=== PATIENT | female | born 1995 | race Caucasian/White ===

== ENCOUNTER → 2017-06-27 | Outpatient (CLI) | payer OTHER ==
--- NOTE | 2017-06-28 06:38 | US ---
EXAMINATION TYPE: US pelvic complete DATE OF EXAM: 06/27/2017 COMPARISON: NONE CLINICAL HISTORY: N92.1 Excessive and frequent menstruation with irr. Irregular menses, patient state s she was off her thyroid medication for a while TECHNIQUE: Transabdominal (TA). Date of LMP: 04/22/2017, G0 EXAM MEASUREMENTS: Uterus: 6.2 x 2.3 x 1.5 cm Endometrial Stripe: 0.1 cm Right Ovary: 2.4 x 1.4 x 1.4 cm Left Ovary: 2.8 x 1.8 x 1.4 cm 1. Uterus: Anteverted wnl 2. Endometrium: wnl 3. Right Ovary: Multiple follicles seen 4. Left Ovary: Multiple follicles seen 5. Bilateral Adnexa: wnl 6. Posterior cul-de-sac: no free fluid seen 7. Cervix: wnl Evaluation is slightly suboptimal as transvaginal investigation was not performed. Anteverted heterog eneous uterus is seen. Endometrium is somewhat thinned. No free fluid is seen in pelvis. Both ovaries are identified. Small peripheral follicles are noted. No suspicious adnexal masses are s een. IMPRESSION: No significant finding is identified on transabdominal pelvic ultrasound to account for p atient's symptoms.
== END | disposition home or self-care (01) ==
LOC: RADUSWWP 15:26
PROVIDERS: ATTEND Family Medicine
DX: N92.1 Excessive and frequent menstruation with irregular cycle (principal)
CPT/HCPCS: 76856

== ENCOUNTER → 2018-04-26 | Outpatient (CLI) | payer OTHER ==
--- NOTE | 2018-04-26 15:29 | US ---
EXAMINATION TYPE: US pelvic complete DATE OF EXAM: 04/26/2018 COMPARISON: NONE CLINICAL HISTORY: N92.1Excessive and frequent mens , R31.9 hematuria. Vaginal bleeding for 3 weeks, p elvic discomfort TECHNIQUE: Transabdominal (TA). Date of LMP: 3 weeks ago EXAM MEASUREMENTS: Uterus: 6.5 x 2.3 x 2.5 cm Endometrial Stripe: 0.3 cm Right Ovary: 2.7 x 1.7 x 2.2 cm Left Ovary: 3.1 x 1.5 x 2.4 cm 1. Uterus: Anteverted wnl 2. Endometrium: wnl 3. Right Ovary: multiple follicles noted 4. Left Ovary: multiple follicles noted 5. Bilateral Adnexa: wnl 6. Posterior cul-de-sac: wnl Urinary bladder is sonolucent. IMPRESSION: 1. Normal pelvic ultrasound
--- NOTE | 2018-04-26 15:43 | US ---
EXAMINATION TYPE: US kidneys/renal and bladder DATE OF EXAM: 04/26/2018 COMPARISON: NONE CLINICAL HISTORY: N92.1Excessive and frequent mens , R31.9 hematuria. Hematuria, lower back pain EXAM MEASUREMENTS: Right Kidney: 10.4 x 4.8 x 4.4 cm Left Kidney: 11.2 x 4.7 x 4.8 cm Post Void Residual Volume: 48.5 mL Right Kidney: no evidence of hydronephrosis Left Kidney: no evidence of hydronephrosis Bladder: wnl Bilateral Jets seen: yes Normal Post Void Residual: upper limits of normal IMPRESSION: 1. Normal retroperitoneal ultrasound
== END | disposition home or self-care (01) ==
LOC: RADUSWWP 14:57
PROVIDERS: ATTEND Family Medicine
DX: N92.1 Excessive and frequent menstruation with irregular cycle (principal); R31.9 Hematuria, unspecified
CPT/HCPCS: 76770; 76856

== ENCOUNTER → 2018-07-24 | Outpatient (CLI) | payer OTHER ==
--- NOTE | 2018-07-24 16:10 | US ---
EXAMINATION TYPE: US pelvis complete transvag DATE OF EXAM: 07/24/2018 COMPARISON: US CLINICAL HISTORY: N93.8 Dysfunctional Uterine Bleeding. TECHNIQUE: Transvaginal (TV) and Transabdominal (TA) . EXAM MEASUREMENTS: Uterus: 5.9 x 2.0 x 3.3 cm Endometrial Stripe: 0.5 cm Right Ovary: 2.1 x 1.8 x 2.1 cm Left Ovary: 3.1 x 2.0 x 2.0 cm 1. Uterus: Anteverted slightly lobulated in contour and heterogenous. 2. Endometrium: measures 0.5 cm, patient states is still on cycle from 06/20/2018. 3. Right Ovary: wnl 4. Left Ovary: dominant follicle measures 1.6 cm. 5. Bilateral Adnexa: wnl 6. Posterior cul-de-sac: no free fluid IMPRESSION: Slight lobulated contour of the heterogenous uterus. Small nonmeasurable uterine leiomyom as are suspected.
== END | disposition home or self-care (01) ==
LOC: RADUSWWP 15:01
PROVIDERS: ATTEND Internal Medicine
DX: R93.89 Abnormal findings on diagnostic imaging of other specified body structures (principal); N93.8 Other specified abnormal uterine and vaginal bleeding
CPT/HCPCS: 76830; 76856

== ENCOUNTER 2020-05-04 15:10 | Emergency (ER) | payer OTHER ==
[2020-05-04] MEDS ORDERED: SODIUM CHLORIDE 0.9% 2,000 ML IV STA (15:36)
[2020-05-04] MEDS ORDERED: MORPHINE SULFATE 4 MG/ML SYRINGE IV STA (15:36)
[2020-05-04] MEDS ORDERED: KETOROLAC 15 MG/ML 1 ML VIAL IVP STA (15:36)
[2020-05-04] MEDS ORDERED: ONDANSETRON 4 MG/2 ML VIAL IVP STA (15:36)
[2020-05-04 16:07] LABS: Basophils % (A) 3 %; Eosinophils % (A) 5 %; HCT 46.5 % (34.0-46.0); HGB 15.6 gm/dL (11.4-16.0); Lymphocytes # (A) 0.8 k/uL (1.0-4.8); Lymphocytes % (A) 17 %; MCH 31.6 pg (25.0-35.0); MCHC 33.5 g/dL (31.0-37.0); MCV 94.2 fL (80.0-100.0); Mean Platelet Volume 7.6; Monocytes % (A) 16 %; Neutrophils # (A) 2.6 k/uL (1.3-7.7); Neutrophils % (A) 57 %; Platelet Count 199 k/uL (150-450); RBC 4.93 m/uL (3.80-5.40); RDW 13.5 % (11.5-15.5); WBC 4.5 k/uL (3.8-10.6)
[2020-05-04 16:08] LABS: Basophils # (A) 0.1 k/uL (0-0.2); Eosinophils # (A) 0.2 k/uL (0-0.7); Monocytes # (A) 0.7 k/uL (0-1.0)
[2020-05-04 16:16] LABS: ALT 32 U/L (4-34); AST 29 U/L (14-36); African American GFR (CKD) >90 (>60 ml/min/1.73 sqM); Alkaline Phosphatase 56 U/L (38-126); Amylase 56 U/L (30-110); Anion Gap 7 mmol/L; Blood Urea Nitrogen 9 mg/dL (7-17); Calcium 9.9 mg/dL (8.4-10.2); Carbon Dioxide 28 mmol/L (22-30); Chloride 99 mmol/L (98-107); Glucose 83 mg/dL (74-99); Lipase 121 U/L (23-300); Non-African American GFR(CKD) >90 (>60 ml/min/1.73 sqM); Potassium 4.6 mmol/L (3.5-5.1); Sodium 134 mmol/L (137-145); Total Bilirubin 0.3 mg/dL (0.2-1.3); Total Protein 7.1 g/dL (6.3-8.2)
[2020-05-04 16:37] LABS: Appearance,Urine Clear (Clear); Bacteria,Urine Rare /hpf; Bilirubin,Urine Negative (Negative); Blood,Urine Moderate (Negative); Color,Urine Yellow; Glucose,Urine (UA) Negative (Negative); Ketones,Urine Negative (Negative); Leukocyte Esterase,Urine Negative (Negative); Mucus,Urine Rare /hpf; Nitrite,Urine Negative (Negative); Protein,Urine Negative (Negative); RBC,Urine 1 /hpf (0-5); Specific Gravity,Urine 1.014 (1.001-1.035); Squamous Epithelial Cell,Urine 1 /hpf (0-4); Urobilinogen,Urine <2.0 mg/dL (<2.0); WBC,Urine 2 /hpf (0-5)
--- NOTE | 2020-05-04 16:58 | ED ---
Abdominal Pain HPI - General Chief Complaint: Abdominal Pain Stated Complaint: Abd pain Time Seen by Provider: 05/04/20 15:21 Source: patient, RN notes reviewed Mode of arrival: wheelchair Limitations: no limitations - History of Present Illness Initial Comments: 24-year-old female presents emergency Department with chief complaint of right- sided abdominal pain, right flank pain. Patient's been having increasing pain for several days states has not had a bowel movement in one week. Patient has tried multiple enemas, oral medications including 2 bottles of magnesium citrate. Patient reports chills, fever or recent started today. Patient was seen by urgent care today sent for CT but cannot tolerate the pain so she presented to the emergency department. Denies any chance she has no complaints of dysuria patient has also been vomiting episodes no chest pain or shortness breath no cough or cold-like symptoms. - Related Data Home Medications Medication Instructions Recorded Confirmed Albuterol Inhaler (Mhu) [Ventolin 1 - 2 puff INHALATION BID PRN 03/25/14 10/08/14 Inhaler] FLUoxetine HCL [PROzac] 10 mg PO DAILY 03/25/14 10/08/14 Medroxyprogesterone Acetate 150 mg IM ONCE 03/25/14 10/08/14 [Depo-Provera] Thyroid,Pork [[place] Thyroid] 60 mg PO DAILY 03/25/14 10/08/14 Levothyroxine Sodium [Tirosint] 50 mcg PO DAILY 10/08/14 10/08/14 Previous Rx's Medication Instructions Recorded Bisac/NaCl/Nahco3/KCl/Peg 3350 1 kit PO DIRECTED #1 kit 05/04/20 [Peg-Prep Kit] Allergies Allergy/AdvReac Type Severity Reaction Status Date / Time No Known Allergies Allergy Verified 05/04/20 15:17 Review of Systems ROS Statement: Those systems with pertinent positive or pertinent negative responses have been documented in the HPI. ROS Other: All systems not noted in ROS Statement are negative. Past Medical History Past Medical History: Asthma, Skin Disorder, Thyroid Disorder Additional Past Medical History / Comment(s): eczema History of Any Multi-Drug Resistant Organisms: None Reported Past Surgical History: Adenoidectomy, Tonsillectomy Past Anesthesia/Blood Transfusion Reactions: Motion Sickness Past Psychological History: Anxiety, Depression Past Alcohol Use History: None Reported Past Drug Use History: None Reported General Exam Limitations: no limitations General appearance: alert, in no apparent distress Head exam: Present: atraumatic, normocephalic, normal inspection Eye exam: Present: normal appearance, PERRL, EOMI. Absent: scleral icterus, conjunctival injection, periorbital swelling ENT exam: Present: normal exam, mucous membranes moist Neck exam: Present: normal inspection, full ROM. Absent: tenderness, meningismus, lymphadenopathy Respiratory exam: Present: normal lung sounds bilaterally. Absent: respiratory distress, wheezes, rales, rhonchi, stridor Cardiovascular Exam: Present: normal rhythm, tachycardia GI/Abdominal exam: Present: soft, tenderness (Moderate right-sided), normal bowel sounds. Absent: distended, guarding, rebound, rigid Back exam: Present: CVA tenderness (R). Absent: CVA tenderness (L) Neurological exam: Present: alert, oriented X3 Skin exam: Present: warm, dry, intact, normal color. Absent: rash Course Vital Signs 05/04/20 15:11 Temperature 101.3 F H Pulse Rate 115 H Respiratory 20 Rate Blood Pressure 131/83 O2 Sat by Pulse 99 Oximetry Medical Decision Making - Medical Decision Making 24-year-old female presented for fever abdominal pain. CT does not reveal any significant intra-abdominal process though showed some ground last opacities of the lungs. X-rays obtained which is negative. covid Testing is positive. Patient's labs otherwise unremarkable. Patient does have moderate amount of constipation which she has been having pain from was given enema and was discharged with bowel prep if no relief. - Lab Data Result diagrams: 05/04/20 15:52 05/04/20 15:52 Lab Results 05/04/20 05/04/20 05/04/20 Range/Units 15:52 15:52 15:52 WBC 4.5 (3.8-10.6) k/uL RBC 4.93 (3.80-5.40) m/uL Hgb 15.6 (11.4-16.0) gm/dL Hct 46.5 H (34.0-46.0) % MCV 94.2 (80.0-100.0) fL MCH 31.6 (25.0-35.0) pg MCHC 33.5 (31.0-37.0) g/dL RDW 13.5 (11.5-15.5) % Plt Count 199 (150-450) k/uL MPV 7.6 Neutrophils % 57 % Lymphocytes % 17 % Monocytes % 16 % Eosinophils % 5 % Basophils % 3 % Neutrophils # 2.6 (1.3-7.7) k/uL Lymphocytes # 0.8 L (1.0-4.8) k/uL Monocytes # 0.7 (0-1.0) k/uL Eosinophils # 0.2 (0-0.7) k/uL Basophils # 0.1 (0-0.2) k/uL Sodium (137-145) mmol/L Potassium (3.5-5.1) mmol/L Chloride (98-107) mmol/L Carbon Dioxide (22-30) mmol/L Anion Gap mmol/L BUN (7-17) mg/dL Creatinine (0.52-1.04) mg/dL Est GFR (CKD-EPI)AfAm (>60 ml/min/1.73 sqM) Est GFR (CKD-EPI)NonAf (>60 ml/min/1.73 sqM) Glucose (74-99) mg/dL Plasma Lactic Acid Manuel (0.7-2.0) mmol/L Calcium (8.4-10.2) mg/dL Total Bilirubin (0.2-1.3) mg/dL AST (14-36) U/L ALT (4-34) U/L Alkaline Phosphatase (38-126) U/L Total Protein (6.3-8.2) g/dL Albumin (3.5-5.0) g/dL Amylase (30-110) U/L Lipase (23-300) U/L Urine Color Yellow Urine Appearance Clear (Clear) Urine pH 6.0 (5.0-8.0) Ur Specific [place] 1.014 (1.001-1.035) Urine Protein Negative (Negative) Urine Glucose (UA) Negative (Negative) Urine Ketones Negative (Negative) Urine Blood Moderate H (Negative) Urine Nitrite Negative (Negative) Urine Bilirubin Negative (Negative) Urine Urobilinogen <2.0 (<2.0) mg/dL Ur Leukocyte Esterase Negative (Negative) Urine RBC 1 (0-5) /hpf Urine WBC 2 (0-5) /hpf Ur Squamous Epith Cells 1 (0-4) /hpf Urine Bacteria Rare H (None) /hpf Urine Mucus Rare H (None) /hpf Urine HCG, Qual Not Detected (Not Detectd) Coronavirus (PCR) (Not Detectd) 05/04/20 05/04/20 05/04/20 Range/Units 15:52 15:52 17:59 WBC (3.8-10.6) k/uL RBC (3.80-5.40) m/uL Hgb (11.4-16.0) gm/dL Hct (34.0-46.0) % MCV (80.0-100.0) fL MCH (25.0-35.0) pg MCHC (31.0-37.0) g/dL RDW (11.5-15.5) % Plt Count (150-450) k/uL MPV Neutrophils % % Lymphocytes % % Monocytes % % Eosinophils % % Basophils % % Neutrophils # (1.3-7.7) k/uL Lymphocytes # (1.0-4.8) k/uL Monocytes # (0-1.0) k/uL Eosinophils # (0-0.7) k/uL Basophils # (0-0.2) k/uL Sodium 134 L (137-145) mmol/L Potassium 4.6 (3.5-5.1) mmol/L Chloride 99 (98-107) mmol/L Carbon Dioxide 28 (22-30) mmol/L Anion Gap 7 mmol/L BUN 9 (7-17) mg/dL Creatinine 0.89 (0.52-1.04) mg/dL Est GFR (CKD-EPI)AfAm >90 (>60 ml/min/1.73 sqM) Est GFR (CKD-EPI)NonAf >90 (>60 ml/min/1.73 sqM) Glucose 83 (74-99) mg/dL Plasma Lactic Acid Manuel 1.3 (0.7-2.0) mmol/L Calcium 9.9 (8.4-10.2) mg/dL Total Bilirubin 0.3 (0.2-1.3) mg/dL AST 29 (14-36) U/L ALT 32 (4-34) U/L Alkaline Phosphatase 56 (38-126) U/L Total Protein 7.1 (6.3-8.2) g/dL Albumin 4.0 (3.5-5.0) g/dL Amylase 56 (30-110) U/L Lipase 121 (23-300) U/L Urine Color Urine Appearance (Clear) Urine pH (5.0-8.0) Ur Specific [place] (1.001-1.035) Urine Protein (Negative) Urine Glucose (UA) (Negative) Urine Ketones (Negative) Urine Blood (Negative) Urine Nitrite (Negative) Urine Bilirubin (Negative) Urine Urobilinogen (<2.0) mg/dL Ur Leukocyte Esterase (Negative) Urine RBC (0-5) /hpf Urine WBC (0-5) /hpf Ur Squamous Epith Cells (0-4) /hpf Urine Bacteria (None) /hpf Urine Mucus (None) /hpf Urine HCG, Qual (Not Detectd) Coronavirus (PCR) Detected A (Not Detectd) Disposition Clinical Impression: Abdominal pain, COVID-19 Disposition: HOME SELF-CARE Condition: Stable Instructions (If sedation given, give patient instructions): Abdominal Pain (ED) Additional Instructions: Please return to the Emergency Department if symptoms worsen or any other oliva rns. Prescriptions: Bisac/NaCl/Nahco3/KCl/Peg 3350 [Peg-Prep Kit] 1 kit PO DIRECTED #1 kit Is patient prescribed a controlled substance at d/c from ED?: No Referrals: Je Rick MD [Primary Care Provider] - 1-2 days Time of Disposition: 18:39
--- NOTE | 2020-05-04 17:34 | CT ---
EXAMINATION TYPE: CT abdomen pelvis w con DATE OF EXAM: 05/04/2020 COMPARISON: None available. HISTORY: Abdominal pain CT DLP: 1640.3 mGycm Automated exposure control for dose reduction was used. TECHNIQUE: Helical acquisition of images was performed from the lung bases through the pelvis. CONTRAST: Performed without Oral Contrast and with IV Contrast, patient injected with 100 mL of Isovue 300. FINDINGS: LUNG BASES: Small bibasilar patchy groundglass opacities. LIVER/GB: No significant abnormality is appreciated. PANCREAS: No significant abnormality is seen. SPLEEN: No significant abnormality is seen. ADRENALS: No significant abnormality is seen. KIDNEYS: No significant abnormality is seen. FREE AIR: No free air is visualized. RETROPERITONEAL ADENOPATHY: None visualized REPRODUCTIVE ORGANS: No significant abnormality is seen URINARY BLADDER: No significant abnormality is seen. PELVIC ADENOPATHY: None visualized. OSSEOUS STRUCTURES: No significant abnormality is seen. BOWEL: No significant abnormality is seen. OTHER: None IMPRESSION: SMALL BIBASILAR PATCHY OPACITIES, CONCERNING FOR DEVELOPING INFILTRATES. OTHERWISE NO ACUTE ABNORMALITY OF THE ABDOMEN OR PELVIS.
[2020-05-04] MEDS ORDERED: DOCUSATE 283 MG/5 ML ENEMA RECTAL STA (18:57)
--- NOTE | 2020-05-04 18:59 | XR ---
EXAMINATION TYPE: XR chest 2V DATE OF EXAM: 05/04/2020 COMPARISON: NONE HISTORY: Fever. TECHNIQUE: Frontal and lateral views of the chest are obtained. FINDINGS: There is no focal air space opacity, pleural effusion, or pneumothorax seen. The cardiac silhouette size is within normal limits. The osseous structures are intact. IMPRESSION: No acute cardiopulmonary process.
[2020-05-04 19:20] VITALS: BP 128/73; PULSE 100; RESP 18; TEMP 99.8
== END 2020-05-04 19:20 | disposition home or self-care (01) ==
LOC: EC 15:10
DX: R10.9 Unspecified abdominal pain (principal); U07.1 COVID-19; R00.0 Tachycardia, unspecified; J45.909 Unspecified asthma, uncomplicated; E07.9 Disorder of thyroid, unspecified; F41.9 Anxiety disorder, unspecified; F32.9 Major depressive disorder, single episode, unspecified; Z90.49 Acquired absence of other specified parts of digestive tract; Z79.890 Hormone replacement therapy; Z79.899 Other long term (current) drug therapy
CPT/HCPCS: 36415; 80053; 82150; 83605; 83690; 85025; 81001; 81025; 87635; 71046; 74177; 99284; 96374; 96375 ×2; 96361; J2270; J2405; J1885; Q9967

== ENCOUNTER → 2020-05-25 | Outpatient (CLI) | payer OTHER ==
[2020-05-25 15:59] LABS: Basophils # (A) 0.1 k/uL (0-0.2); Basophils % (A) 1 %; Eosinophils # (A) 0.3 k/uL (0-0.7); Eosinophils % (A) 3 %; HCT 44.8 % (34.0-46.0); HGB 14.5 gm/dL (11.4-16.0); Lymphocytes # (A) 2.4 k/uL (1.0-4.8); Lymphocytes % (A) 28 %; MCH 30.4 pg (25.0-35.0); MCHC 32.4 g/dL (31.0-37.0); MCV 93.9 fL (80.0-100.0); Mean Platelet Volume 6.6; Monocytes # (A) 0.5 k/uL (0-1.0); Monocytes % (A) 5 %; Neutrophils # (A) 5.3 k/uL (1.3-7.7); Neutrophils % (A) 62 %; RBC 4.77 m/uL (3.80-5.40); RDW 14.5 % (11.5-15.5); WBC 8.6 k/uL (3.8-10.6)
[2020-05-25 16:00] LABS: Platelet Count 400 k/uL (150-450)
[2020-05-25 17:27] LABS: ALT 26 U/L (4-34); AST 22 U/L (14-36); African American GFR (CKD) >90 (>60 ml/min/1.73 sqM); Albumin 3.7 g/dL (3.5-5.0); Albumin/Globulin Ratio 1.2; Alkaline Phosphatase 66 U/L (38-126); Anion Gap 5 mmol/L; Blood Urea Nitrogen 16 mg/dL (7-17); Calcium 9.5 mg/dL (8.4-10.2); Carbon Dioxide 27 mmol/L (22-30); Chloride 103 mmol/L (98-107); Globulin 3.1 g/dL; Glucose 83 mg/dL (74-99); Magnesium 2.1 mg/dL (1.6-2.3); Non-African American GFR(CKD) >90 (>60 ml/min/1.73 sqM); Potassium 4.5 mmol/L (3.5-5.1); Sodium 135 mmol/L (137-145); Total Bilirubin 0.3 mg/dL (0.2-1.3); Total Protein 6.8 g/dL (6.3-8.2)
== END | disposition home or self-care (01) ==
LOC: LABWHC1 15:30
PROVIDERS: ATTEND Nurse Practitioner Adult Health
DX: R00.2 Palpitations (principal); R06.9 Unspecified abnormalities of breathing; R25.1 Tremor, unspecified
CPT/HCPCS: 36415; 80053; 83735; 83880; 84260; 85025; 85379

== ENCOUNTER → 2020-09-16 | Outpatient (CLI) | payer OTHER ==
[2020-09-16 10:39] LABS: INR 0.9 (<1.2); Prothrombin Time 9.9 sec (9.0-12.0)
[2020-09-16 10:40] LABS: Partial Thromboplastin Time 23.6 sec (22.0-30.0)
[2020-09-16 17:07] LABS: HCT 43.8 % (37.2-46.3); HGB 14.2 g/dL (12.0-15.0); MCH 30.9 pg (27.0-32.0); MCHC 32.4 g/dL (32.0-37.0); MCV 95.4 fL (80.0-97.0); Mean Platelet Volume 10.9 fL (9.5-12.2); Platelet Count 278 X 10*3/uL (140-440); RBC 4.59 X 10*6/uL (4.10-5.20); RDW 12.6 % (11.5-14.5); WBC 7.44 X 10*3/uL (4.50-10.00)
[2020-09-16 17:58] LABS: Basophils # (A) 0.06 X 10*3/uL (0.00-0.10); Basophils % (A) 0.8 %; Eosinophils # (A) 0.07 X 10*3/uL (0.04-0.35); Eosinophils % (A) 0.9 %; Lymphocytes # (A) 3.34 X 10*3/uL (0.90-5.00); Lymphocytes % (A) 44.9 %; Monocytes # (A) 0.86 X 10*3/uL (0.20-1.00); Monocytes % (A) 11.6 %; Neutrophils # (A) 3.08 X 10*3/uL (1.80-7.70); Neutrophils % (A) 41.4 %
[2020-09-16 19:54] LABS: Erythrocyte Sedimentation Rate 9 mm/Hr (0-20)
[2020-09-16 20:48] LABS: % Iron Saturation 14.02 (12.00-45.00); African American GFR (CKD) 138.6 (60.0-200.0); Albumin 4.4 g/dL (3.80-4.90); Albumin/Globulin Ratio 1.91 (1.60-3.17); Anion Gap 8.5 mmol/L (4.00-12.00); BUN/Creat Ratio 14.29 Ratio (12.00-20.00); Calcium 9.4 mg/dL (8.7-10.3); Carbon Dioxide 27.5 mmol/L (21.6-31.8); Globulin 2.3 g/dL (1.6-3.3); Non-African American GFR(CKD) 119.6 (60.0-200.0); Total Bilirubin 0.4 mg/dL (0.3-1.2); Total Protein 6.7 g/dL (6.2-8.2)
[2020-09-16 20:56] LABS: T4, Free (Free Thyroxine) 1.3 ng/dL (0.80-1.80)
[2020-09-16 20:59] LABS: Ferritin 21.1 ng/mL (10.0-291.0)
[2020-09-16 22:45] LABS: Folate, Serum 19.8 ng/mL
== END | disposition home or self-care (01) ==
LOC: LABWHC1 09:42
PROVIDERS: ATTEND Physician Assistant
DX: L65.9 Nonscarring hair loss, unspecified (principal); R23.3 Spontaneous ecchymoses
CPT/HCPCS: 36415; 80053; 82306; 82607; 82627; 82728; 82746; 83540; 83550; 84439; 84443; 85025; 85610; 85652; 85730

== ENCOUNTER → 2020-12-24 | Outpatient (CLI) | payer OTHER ==
[2020-12-24 14:55] VITALS: BP 125/74; PULSE 85; TEMP 98.4; BMI 44.6
--- NOTE | 2020-12-24 15:58 | P.HPBAR ---
Bariatric H&P - History & Physicial H&P Date: 12/24/20 History & Physicial: Visit/CC: initial clinic visit Patient initial contact: Initial weight: Initial weight in pounds: Height: 5 ft 5 in Initial BMI: Last weight: Current weight: 121.563 kg Current weight in pounds: 268.00 Current BMI: 44.6 Ola body weight (based on NIH guidelines): 56.699 kg Excess body weight loss: The patient is a 25 year-old F who presents for Bariatric Assessment. Patient is interested in sleeve gastrectomy. Her mother had gastric bypass in 2003. The patient works at an [employer]. Her BMI is 44. She had a CAT scan in April which was negative. She had bad episode of Covid around that time. Patient suffers from hypothyroidism, asthma, minimal reflux. No history of DVT or dysphagia. Patient does vape. Patient had an upper endoscopy 2014 which was normal. Review of Systems The patient denies any acute changes in vision or hearing, no dysphagia or odynophagia, no chest pain or shortness of breath, no dysuria or hematuria, no headache, no runny nose, no rectal bleeding or melena, no unexplained weight loss Past Medical History Past Medical History: Asthma, Skin Disorder, Thyroid Disorder Additional Past Medical History / Comment(s): eczema History of Any Multi-Drug Resistant Organisms: None Reported Past Surgical History: Adenoidectomy, Tonsillectomy Past Anesthesia/Blood Transfusion Reactions: Motion Sickness Past Psychological History: Anxiety, Depression Smoking Status: Current every day smoker, Vaper Past Alcohol Use History: None Reported Past Drug Use History: None Reported Surgical - Exam Vital Signs Temp Pulse BP 98.4 F 85 125/74 12/24/20 14:48 12/24/20 14:48 12/24/20 14:48 Physical exam: General: Well-developed, well-nourished HEENT: Normocephalic, sclerae nonicteric Abdomen: Nontender, nondistended Extremities: No edema Neuro: Alert and oriented Bariatric Assessment & Plan (1) Morbid obesity with BMI of 40.0-44.9, adult Narrative/Plan: 25 row female with morbid obesity and associated morbidities. Patient interested in sleeve gastrectomy. We'll tentatively proceed with laparoscopic sleeve gastrectomy. Will plan EGD approximately 2 months from now. Patient will continue to work on cessation of her tobacco use. Status: Acute Bariatric Checklist Checklist: Plan: Checklist: EGD: 1. Hiatal hernia: 2. H. Pylori: HgbA1c: Vitamin D: Smoking: Never smoker Primary care physician referral: dr millan Psychiatry clearance: Cardiology clearance: Sleep study: Diet journal: VTE risk score: VTE risk level: Rehab needs at discharge:
[2020-12-24 16:27] LABS: HCT 43.7 % (34.0-46.0); HGB 15.1 gm/dL (11.4-16.0); MCH 33.1 pg (25.0-35.0); MCHC 34.6 g/dL (31.0-37.0); MCV 95.7 fL (80.0-100.0); Platelet Count 274 k/uL (150-450); RBC 4.57 m/uL (3.80-5.40); RDW 12.9 % (11.5-15.5); WBC 8.3 k/uL (3.8-10.6)
[2020-12-25 05:53] LABS: Iron 44 ug/dL (50-170)
[2020-12-25 06:29] LABS: ALT 43 U/L (8-44); AST 23 U/L (13-35); African American GFR (CKD) 131.7 (60.0-200.0); Albumin 4.5 g/dL (3.8-4.9); Albumin/Globulin Ratio 1.96 (1.60-3.17); Alkaline Phosphatase 75 U/L (41-126); Blood Urea Nitrogen 5.8 mg/dL (9.0-27.0); Calcium 9.8 mg/dL (8.7-10.3); Carbon Dioxide 24.3 mmol/L (21.6-31.8); Chloride 102 mmol/L (96-109); Globulin 2.3 g/dL (1.6-3.3); Glucose 93 mg/dL (70-110); Non-African American GFR(CKD) 113.7 (60.0-200.0); Sodium 140 mmol/L (135-145); Total Bilirubin <0.20 mg/dL (0.30-1.20); Total Protein 6.8 g/dL (6.2-8.2)
== END ==
LOC: BARWHC3 14:32
PROVIDERS: ATTEND Surgery
DX: E66.01 Morbid (severe) obesity due to excess calories (principal); J45.909 Unspecified asthma, uncomplicated; F41.9 Anxiety disorder, unspecified; F32.9 Major depressive disorder, single episode, unspecified; F17.290 Nicotine dependence, other tobacco product, uncomplicated; E03.9 Hypothyroidism, unspecified; Z68.41 Body mass index [BMI] 40.0-44.9, adult
CPT/HCPCS: 84425; 80053; 82607; 82746; 83540; 85027; 82306; 83036; G0463; 99211

== ENCOUNTER → 2021-01-06 | Outpatient (CLI) | payer OTHER ==
--- NOTE | 2021-01-07 10:10 | ECHOF ---
Referral Reason:R00.2 Palpitations MEASUREMENTS -------- HEIGHT: 165.1 cm WEIGHT: 121.6 kg BP: RVIDd: 2.6 cm (< 3.3) IVSd: 1.0 cm (0.6 - 1.1) LVIDd: 4.4 cm (3.9 - 5.3) LVPWd: 1.0 cm (0.6 - 1.1) IVSs: 1.4 cm LVIDs: 2.5 cm LVPWs: 1.6 cm LA Diam: 3.2 cm (2.7 - 3.8) LAESV Index (A-L): 19.12 ml/m Ao Diam: 2.4 cm (2.0 - 3.7) AV Cusp: 1.7 cm (1.5 - 2.6) LA Diam: 3.3 cm (2.7 - 3.8) MV EXCURSION: 22.239 mm (> 18.000) MV EF SLOPE: 98 mm/s (70 - 150) EPSS: 0.1 cm MV E Bonifacio: 0.72 m/s MV DecT: 108 ms MV A Bonifacio: 0.63 m/s MV E/A Ratio: 1.14 RAP: 5.00 mmHg RVSP: 22.41 mmHg FINDINGS -------- Sinus rhythm. This was a technically good study. Morbid Obesity LV size, wall thickness and systolic function are normal, with an EF greater than 55%. The left joelle tricular size is normal. The right ventricle is normal in size. Normal LA size by volume 22+/-6 ml/m2. The right atrial size is normal. The aortic valve is trileaflet, and appears structurally normal. No aortic stenosis or regurgitation. There is trace mitral regurgitation. Mild tricuspid regurgitation present. Right ventricular systolic pressure is normal at < 35 mmHg. There is no pulmonic regurgitation present. There is no pericardial effusion. CONCLUSIONS -------- 1. Morbid Obesity 2. LV size, wall thickness and systolic function are normal, with an EF greater than 55%. 3. The left ventricular size is normal. 4. The right ventricle is normal in size. 5. Normal LA size by volume 22+/-6 ml/m2. 6. The right atrial size is normal. 7. The aortic valve is trileaflet, and appears structurally normal. No aortic stenosis or regurgitati on. 8. There is trace mitral regurgitation. 9. Mild tricuspid regurgitation present. 10. There is no pericardial effusion. PHYSICS DEPARTMENT CHAIR: Alvina Giles RDCS
== END | disposition home or self-care (01) ==
LOC: RADECHMAIN 14:10
PROVIDERS: ATTEND Family Medicine
DX: I08.1 Rheumatic disorders of both mitral and tricuspid valves (principal); E66.01 Morbid (severe) obesity due to excess calories
CPT/HCPCS: 93306

== ENCOUNTER 2021-05-25 16:00 | Emergency (ER) | payer OTHER ==
[2021-05-25 17:51] VITALS: RESP 20
[2021-05-25 18:05] LABS: Appearance,Urine Cloudy (Clear); Bacteria,Urine Moderate /hpf; Bilirubin,Urine Negative (Negative); Blood,Urine Negative (Negative); Color,Urine Yellow; Glucose,Urine (UA) Negative (Negative); Ketones,Urine Negative (Negative); Leukocyte Esterase,Urine Moderate (Negative); Mucus,Urine Moderate /hpf; Nitrite,Urine Negative (Negative); Protein,Urine Trace (Negative); RBC,Urine 1 /hpf (0-5); Specific Gravity,Urine 1.025 (1.001-1.035); Squamous Epithelial Cell,Urine 4 /hpf (0-4); Urobilinogen,Urine <2.0 mg/dL (<2.0); WBC,Urine 4 /hpf (0-5)
[2021-05-25] MEDS ORDERED: SODIUM CHLORIDE 0.9% 1,000 ML IV STA (19:22)
--- NOTE | 2021-05-25 19:26 | ED ---
Abdominal Pain HPI - General Chief Complaint: Abdominal Pain Stated Complaint: upper abdominal & back pain Time Seen by Provider: 05/25/21 19:18 Source: patient, RN notes reviewed Mode of arrival: ambulatory Limitations: no limitations - History of Present Illness Initial Comments: This is a pleasant 25-year-old female presents to emergency by complaining of right upper quadrant abdominal pain which is sharp in nature. She states it started several days ago and is worse after eating. She states the pain will last for up to 2 hours or so. It does not matter what she is eating. She denies any known fever or chills. No shortness of breath or chest pain. She states the pain also is exacerbated by palpation and deep breathing at times. Does radiate to the epigastrium at times. A few times has radiated to the right shoulder blade area. Patient has no other significant past medical history other than IBS. There is a family history of cardiac disease in older age. Patient previous cigarette smoker and currently fainting. Denies illicit drug abuse or alcohol use. Denies chance of . Last menstrual period was May 04. No headache, no fever or chills, no changes in vision or hearing, no sore throat or difficulty with speech, no neck pain, no chest pain or shortness of breath, POSITIVE right upper quadrant abdominal pain with nausea, no changes in urination or bowel movements, no numbness or tingling, no extremity pain, no skin rashes or lesions. MD Complaint: abdominal pain - Related Data Home Medications Medication Instructions Recorded Confirmed FLUoxetine HCL 40 mg PO DAILY 12/28/20 05/25/21 Albuterol Inhaler [Ventolin Hfa 2 puff INHALATION RT-Q6H PRN 05/25/21 05/25/21 Inhaler] Biotin 5 mg PO DAILY 05/25/21 05/25/21 Famotidine 40 mg PO DAILY 05/25/21 05/25/21 Ferrous Sulfate [Feosol] 325 mg PO DAILY 05/25/21 05/25/21 Levocetirizine Dihydrochloride 5 mg PO DAILY 05/25/21 05/25/21 [Xyzal] Levothyroxine Sodium [Synthroid] 88 mcg PO MOTUWETHFR 05/25/21 05/25/21 Levothyroxine Sodium [Synthroid] 100 mcg PO MOTUWETHFR 05/25/21 05/25/21 Levothyroxine Sodium [Synthroid] 200 mcg PO SUSA 05/25/21 05/25/21 Montelukast Sodium [Singulair] 10 mg PO DAILY 05/25/21 05/25/21 Omeprazole 40 mg PO DAILY 05/25/21 05/25/21 Allergies Allergy/AdvReac Type Severity Reaction Status Date / Time No Known Allergies Allergy Verified 05/25/21 19:57 Review of Systems ROS Statement: Those systems with pertinent positive or pertinent negative responses have been documented in the HPI. ROS Other: All systems not noted in ROS Statement are negative. Past Medical History Past Medical History: Asthma, Skin Disorder, Thyroid Disorder Additional Past Medical History / Comment(s): eczema History of Any Multi-Drug Resistant Organisms: None Reported Past Surgical History: Adenoidectomy, Tonsillectomy Past Anesthesia/Blood Transfusion Reactions: Motion Sickness Past Psychological History: Anxiety, Depression Smoking Status: Vaper Past Alcohol Use History: Occasional Past Drug Use History: Marijuana General Exam Limitations: no limitations Course Vital Signs 05/25/21 17:49 Temperature 99.5 F Pulse Rate 101 H Respiratory 20 Rate Blood Pressure 150/88 O2 Sat by Pulse 100 Oximetry Medical Decision Making - Medical Decision Making Patient symptomology most consistent with gallbladder disease. Other etiologies less likely such as appendicitis or gastritis given the patient's presentation. Pain is postprandial. Patient has positive Sosa sign of physical examination. Clinical picture is not consistent with cardiopulmonary disease. - Lab Data Result diagrams: 05/25/21 19:56 05/25/21 19:56 Lab Results 05/25/21 05/25/21 05/25/21 Range/Units 17:55 17:56 19:56 WBC 10.7 H (3.8-10.6) k/uL RBC 5.07 (3.80-5.40) m/uL Hgb 15.9 (11.4-16.0) gm/dL Hct 48.6 H (34.0-46.0) % MCV 95.9 (80.0-100.0) fL MCH 31.4 (25.0-35.0) pg MCHC 32.8 (31.0-37.0) g/dL RDW 13.2 (11.5-15.5) % Plt Count 291 (150-450) k/uL MPV 7.9 Neutrophils % 56 % Lymphocytes % 26 % Monocytes % 6 % Eosinophils % 9 % Basophils % 1 % Neutrophils # 6.0 (1.3-7.7) k/uL Lymphocytes # 2.8 (1.0-4.8) k/uL Monocytes # 0.7 (0-1.0) k/uL Eosinophils # 0.9 H (0-0.7) k/uL Basophils # 0.1 (0-0.2) k/uL Sodium (137-145) mmol/L Potassium (3.5-5.1) mmol/L Chloride (98-107) mmol/L Carbon Dioxide (22-30) mmol/L Anion Gap mmol/L BUN (7-17) mg/dL Creatinine (0.52-1.04) mg/dL Est GFR (CKD-EPI)AfAm (>60 ml/min/1.73 sqM) Est GFR (CKD-EPI)NonAf (>60 ml/min/1.73 sqM) Glucose (74-99) mg/dL Plasma Lactic Acid Manuel (0.7-2.0) mmol/L Calcium (8.4-10.2) mg/dL Total Bilirubin (0.2-1.3) mg/dL AST (14-36) U/L ALT (4-34) U/L Alkaline Phosphatase (38-126) U/L Total Protein (6.3-8.2) g/dL Albumin (3.5-5.0) g/dL Lipase (23-300) U/L Urine Color Yellow Urine Appearance Cloudy H (Clear) Urine pH 6.0 (5.0-8.0) Ur Specific [place] 1.025 (1.001-1.035) Urine Protein Trace H (Negative) Urine Glucose (UA) Negative (Negative) Urine Ketones Negative (Negative) Urine Blood Negative (Negative) Urine Nitrite Negative (Negative) Urine Bilirubin Negative (Negative) Urine Urobilinogen <2.0 (<2.0) mg/dL Ur Leukocyte Esterase Moderate H (Negative) Urine RBC 1 (0-5) /hpf Urine WBC 4 (0-5) /hpf Ur Squamous Epith Cells 4 (0-4) /hpf Urine Bacteria Moderate H (None) /hpf Urine Mucus Moderate H (None) /hpf Urine HCG, Qual Not Detected (Not Detectd) 05/25/21 05/25/21 Range/Units 19:56 19:56 WBC (3.8-10.6) k/uL RBC (3.80-5.40) m/uL Hgb (11.4-16.0) gm/dL Hct (34.0-46.0) % MCV (80.0-100.0) fL MCH (25.0-35.0) pg MCHC (31.0-37.0) g/dL RDW (11.5-15.5) % Plt Count (150-450) k/uL MPV Neutrophils % % Lymphocytes % % Monocytes % % Eosinophils % % Basophils % % Neutrophils # (1.3-7.7) k/uL Lymphocytes # (1.0-4.8) k/uL Monocytes # (0-1.0) k/uL Eosinophils # (0-0.7) k/uL Basophils # (0-0.2) k/uL Sodium 137 (137-145) mmol/L Potassium 3.7 (3.5-5.1) mmol/L Chloride 102 (98-107) mmol/L Carbon Dioxide 26 (22-30) mmol/L Anion Gap 9 mmol/L BUN 9 (7-17) mg/dL Creatinine 0.75 (0.52-1.04) mg/dL Est GFR (CKD-EPI)AfAm >90 (>60 ml/min/1.73 sqM) Est GFR (CKD-EPI)NonAf >90 (>60 ml/min/1.73 sqM) Glucose 96 (74-99) mg/dL Plasma Lactic Acid Manuel 0.9 (0.7-2.0) mmol/L Calcium 9.5 (8.4-10.2) mg/dL Total Bilirubin 0.6 (0.2-1.3) mg/dL AST 26 (14-36) U/L ALT 29 (4-34) U/L Alkaline Phosphatase 71 (38-126) U/L Total Protein 7.6 (6.3-8.2) g/dL Albumin 4.5 (3.5-5.0) g/dL Lipase 92 (23-300) U/L Urine Color Urine Appearance (Clear) Urine pH (5.0-8.0) Ur Specific [place] (1.001-1.035) Urine Protein (Negative) Urine Glucose (UA) (Negative) Urine Ketones (Negative) Urine Blood (Negative) Urine Nitrite (Negative) Urine Bilirubin (Negative) Urine Urobilinogen (<2.0) mg/dL Ur Leukocyte Esterase (Negative) Urine RBC (0-5) /hpf Urine WBC (0-5) /hpf Ur Squamous Epith Cells (0-4) /hpf Urine Bacteria (None) /hpf Urine Mucus (None) /hpf Urine HCG, Qual (Not Detectd) Disposition Clinical Impression: Biliary colic, Right upper quadrant abdominal pain Disposition: HOME SELF-CARE Condition: Good Instructions (If sedation given, give patient instructions): Biliary Colic (ED) Additional Instructions: Call the surgeon and your regular doctor in the morning to schedule follow-up appointment. Adhere to a low fat, low grease diet. Plenty of fluids. Tylenol for pain. Follow-up with your regular physician as directed. Return to the ER immediately if any symptoms worsen, new symptoms arise, or any other problems develop. Is patient prescribed a controlled substance at d/c from ED?: No Referrals: Herbert Butcher MD [Primary Care Provider] - 1-2 days Juanjose Guillaume DO [Doctor of Osteopathic Medicine] - 1-2 days Time of Disposition: 21:45
[2021-05-25 20:05] LABS: Basophils # (A) 0.1 k/uL (0-0.2); Basophils % (A) 1 %; Eosinophils # (A) 0.9 k/uL (0-0.7); Eosinophils % (A) 9 %; HCT 48.6 % (34.0-46.0); HGB 15.9 gm/dL (11.4-16.0); Lymphocytes # (A) 2.8 k/uL (1.0-4.8); Lymphocytes % (A) 26 %; MCH 31.4 pg (25.0-35.0); MCHC 32.8 g/dL (31.0-37.0); MCV 95.9 fL (80.0-100.0); Mean Platelet Volume 7.9; Monocytes # (A) 0.7 k/uL (0-1.0); Monocytes % (A) 6 %; Neutrophils % (A) 56 %; Platelet Count 291 k/uL (150-450); RBC 5.07 m/uL (3.80-5.40); RDW 13.2 % (11.5-15.5); WBC 10.7 k/uL (3.8-10.6)
--- NOTE | 2021-05-25 20:11 | XR ---
EXAMINATION TYPE: XR abdomen acute w cxr DATE OF EXAM: 05/25/2021 COMPARISON: NONE HISTORY: Right upper quadrant pain TECHNIQUE: 4 views FINDINGS: Heart and mediastinum are normal. Lungs are clear. Diaphragm is normal. Bony thorax appears normal. The pulmonary vascularity is normal. Bowel gas pattern is normal. There is no sign of intestinal obstruction or pneumoperitoneum. Fecal pa ttern is normal. There are no pathologic calcifications over the kidneys. IMPRESSION: Nonacute abdomen. Normal chest.
[2021-05-25 20:17] LABS: ALT 29 U/L (4-34); AST 26 U/L (14-36); African American GFR (CKD) >90 (>60 ml/min/1.73 sqM); Albumin 4.5 g/dL (3.5-5.0); Alkaline Phosphatase 71 U/L (38-126); Anion Gap 9 mmol/L; Blood Urea Nitrogen 9 mg/dL (7-17); Calcium 9.5 mg/dL (8.4-10.2); Carbon Dioxide 26 mmol/L (22-30); Chloride 102 mmol/L (98-107); Glucose 96 mg/dL (74-99); Lipase 92 U/L (23-300); Non-African American GFR(CKD) >90 (>60 ml/min/1.73 sqM); Potassium 3.7 mmol/L (3.5-5.1); Sodium 137 mmol/L (137-145); Total Bilirubin 0.6 mg/dL (0.2-1.3); Total Protein 7.6 g/dL (6.3-8.2)
--- NOTE | 2021-05-25 21:36 | US ---
EXAMINATION TYPE: US gallbladder DATE OF EXAM: 05/25/2021 COMPARISON: NONE CLINICAL HISTORY: Right upper quadrant abdominal pain. EXAM MEASUREMENTS: Liver Length: 14.3 cm Gallbladder Wall: 0.21 cm CBD: 0.30 cm Right Kidney: 9.3 x 3.9 x 4.3 cm Pancreas: Limited visualization Liver: Appears wnl Gallbladder: wnl Evidence for sonographic Sosa's sign: no CBD: wnl as visualized Right Kidney: No hydronephrosis or masses seen Difficult exam due to patient body habitus IMPRESSION: Liver shows no focal defects. No gallstones or dilated ducts. Exam limited by patient size.
[2021-05-25 23:07] VITALS: BP 140/78; PULSE 90; TEMP 98.9
== END 2021-05-25 22:32 | disposition home or self-care (01) ==
LOC: EC 16:00
DX: K80.50 Calculus of bile duct without cholangitis or cholecystitis without obstruction (principal); E07.9 Disorder of thyroid, unspecified; J45.909 Unspecified asthma, uncomplicated; F41.9 Anxiety disorder, unspecified; F32.A Depression, unspecified; F17.290 Nicotine dependence, other tobacco product, uncomplicated; F12.90 Cannabis use, unspecified, uncomplicated
CPT/HCPCS: 36415; 74022; 76705; 80053; 81001; 81025; 83605; 83690; 85025; 87040; 96360; 99284

== ENCOUNTER → 2021-06-11 | Outpatient (CLI) | payer OTHER ==
--- NOTE | 2021-06-11 11:38 | NM ---
EXAMINATION TYPE: NM hepatobiliary w EF DATE OF EXAM: 06/11/2021 COMPARISON: Ultrasound gallbladder 05/25/2021 HISTORY: Right upper quadrant pain TECHNIQUE: After the intravenous administration of 5.1 mCi Tc 99m Mebrofenin hepatobiliary scintigrap hy is performed. Immediate images post injection. FINDINGS: There is satisfactory initial accumulation of tracer by the liver. The gallbladder is visualized wit hin 6 minutes. The small bowel activity is noted within 22 minutes. At one hour 8 ounces of oral en sure plus is given to mimic CCK and gallbladder ejection fraction is calculated at 86 %, just above t he upper limit of the normal range. Therefore there is no scintigraphic evidence of cystic or common bile duct obstruction to suggest acute cholecystitis. IMPRESSION: Hyperdynamic gallbladder is within differential
== END | disposition home or self-care (01) ==
LOC: RADNMMAIN 06:52
PROVIDERS: ATTEND Family Medicine
DX: K82.8 Other specified diseases of gallbladder (principal)
CPT/HCPCS: 78226; A9537

== ENCOUNTER → 2021-08-11 | Day surgery (SDC) | payer OTHER ==
[2021-08-06 15:52] VITALS: BMI 44.2
[~2021-08-11] MED LIST: LACTATED RINGERS 1,000 ML IV ONE; LACTATED RINGERS 1,000 ML IV SCH; LIDOCAINE 1% (10MG/ML) FOR IV START INTRADERMA PRN; PROPOFOL 10 MG/ML 20 ML VIAL IV ONE
[2021-08-11 07:49] VITALS: TEMP 97.8
--- NOTE | 2021-08-11 08:44 | P.PCN ---
Date of Procedure: 08/11/21 Procedure(s) Performed: Brief history: Patient is a pleasant 25-year-old white female scheduled for an elective upper endoscopy as well as colonoscopy as a part of evaluation of right upper quadrant abdominal pain for the last 3-4 months duration. She has intermittent episodes of nausea vomiting and change in bowel habits. She descending and hence of the gallbladder that was unremarkable. HIDA scan was also unremarkable. Procedure performed: Esophagogastroduodenoscopy with biopsy Colonoscopy Preoperative diagnosis: Chronic right upper quadrant abdominal pain Change in bowel habits Anesthesia: MAC Procedure: After informed consent was obtained from the patient was brought into the endos copy unit and IV sedation was administered by anesthesia under continuous monitoring. Initially upper endoscopy was done. The Olympus GF 160 video endoscope was inserted inserted into the mouth and esophagus intubated without any difficulty and was gradually advanced into the stomach and duodenum and carefully examined. The bulb and second part of the duodenum appeared normal. Biopsies were done from the duodenum to rule out celiac disease. The scope was then withdrawn into the stomach adequately insufflated with air and upon careful examination the antrum had scattered erosions and biopsies were done from this area. Mucosa of the body, cardia and fundus appeared normal. The scope was then withdrawn into the esophagus. The GE junction was located at 40 cm to the incisors. Small sliding type hiatal hernia noted. It appeared regular with no erythema erosions or ulcerations. Rest of the esophagus appeared normal. Biopsies were done from the distal esophagus. Patient tolerated the procedure well. At this time the patient continued to remain sedation. Initial digital rectal examination was normal. Olympus CF 160 video colonoscope was then inserted into the rectum and gradually advanced to the cecum without any difficulty. Careful examination was performed as the scope was gradually being withdrawn. The prep was excellent. Terminal ileum was intubated and 20 cm visualized and appeared normal. The cecum, ascending colon, transverse colon, descending colon, sigmoid colon and rectum appeared normal. Retroflexion was performed in the rectum and no lesions were noted. Patient tolerated the procedure well. Impression: 1. Upper endoscopy revealed antral erosive gastritis and a small hiatal hernia 2. Colonoscopy was within normal limits with no evidence of colitis or colorectal neoplasia. Recommendations: Findings of this examination were discussed with the patient as well as day. She was advised to follow with the biopsy results. She will continue with current medications and she'll be seen in office in 2-3 weeks.
[2021-08-11 09:08] VITALS: BP 132/85; PULSE 77; RESP 16
== END ==
LOC: ORWHC2ENDO 07:27
PROVIDERS: ATTEND Internal Medicine Gastroenterology
DX: K29.50 Unspecified chronic gastritis without bleeding (principal); K29.60 Other gastritis without bleeding; K44.9 Diaphragmatic hernia without obstruction or gangrene
CPT/HCPCS: 45378; 43239; 81025; 88305; 88342; J2704

== ENCOUNTER → 2022-02-14 | Outpatient (CLI) | payer OTHER ==
--- NOTE | 2022-02-14 12:43 | NM ---
EXAMINATION TYPE: NM gastric emptying static DATE OF EXAM: 02/14/2022 COMPARISON: None CLINICAL INDICATION:Female, 26 years old with history of R11.2 nausea vomiting; Following administration of 2.1 mCi Tc 99m Sulfur Colloid with 2 EGGS, 1 PIECE OF TOAST WITH BUTTER & JAM, 8 OUNCES ICE WATER, projection images of the abdomen were obtained 10 minutes post ingestion. Patient Emptying Values 1 Hour 22 % 2 Hours 32 % 3 Hours 49 % 4 Hours 67 % Gastric emptying T1/2: 176 minutes Gastroesophagel reflux: None IMPRESSION: Gastric emptying: Delayed gastric emptying. Gastroesophageal reflux: None visualized Gastric emptying normal percentage values: 30 minutes: <70% of retention (> 30% emptying) suggests abnormally fast emptying. 60 minutes: <90% retention (>10% emptying) is normal; less than 30% retention (>70% emptying) suggest s abnormally rapid empying. 90 minutes: <65% retention (> 35% emptying) is normal. 120 minutes: <60% retention (> 40% emptying) is normal. 180 minutes: <30% retention (> 70% emptying) is normal. Gastric emptying T-1/2: Solid: The normal range is 60-105 minutes Liquid only: Normal range is 10-45 minutes. Liquid only-children: At 60 minutes, normal range is 44-58 % . Liquid only-infants: At 60 minutes, normal range is 32-64 %. Additional references: Gastric Emptying Scintigraphy [email or web address]
== END | disposition home or self-care (01) ==
LOC: RADNMMAIN 06:49
PROVIDERS: ATTEND Internal Medicine Gastroenterology
DX: K30 Functional dyspepsia (principal)
CPT/HCPCS: 78264; A9541